=== PATIENT | female | born 1985 | race Caucasian/White ===

== ENCOUNTER 2017-02-02 05:07 | Emergency (ER) | payer OTHER ==
--- NOTE | 2017-02-02 06:05 | ED ORDER SUMMARY ---
..... Patient: VIC GALLEGOS OrderSheet [facility] VisitID: [id number] [place] [address] 31y, F Registration Date/Time: 02/02/2017 ORDER SHEET Weight: 83.9 kg (stated) Allergies: No Known Drug Allergy GENERAL ORDERS: Laboratory Geneticist (Continuous) (CP) (05:29 02/02/2017 JQuivey R.N. per protocol) (5:30 JQuivey R.N.) Pulse oximeter (05:30 02/02/2017 JQuivey R.N. per protocol) (5:30 JQuivey R.N.) EKG - ER Stat (05:02/02/2017 JQuivey R.N. per protocol) (5:30 JQuivey R.N.) CBC w Diff Urgent (05:38 02/02/2017 Kirk LIND) (Ack 5:43 Marilou) (5:59 JDeElena R.N.) CMP Urgent (05:38 02/02/2017 Kirk LIND) (Ack 5:43 Israelekimarené) (5:59 JDeElena R.N.) Lipase Urgent (05:38 02/02/2017 Kirk LIND) (Ack 5:43 Israelekimana) (5:59 JDeElena R.N.) MEDICATION ORDERS: GI Cocktail WHITE PO 30 mL with Lidocaine Viscous Mouth/Throat 15 mL, Maalox Plus Oral 15 mL (NOW) (05:37 02/02/2017 Kirk LIND) (Ack 5:48 JDeElena R.N.) (5:58 JDeElena R.N.) Zofran ODT PO 4 mg (NOW) (05:38 02/02/2017 Kirk LIND) (Ack 5:48 JDeElena R.N.) (5:59 JDeElena R.N.) IV FLUIDS: IV Saline Lock (05:30 02/02/2017 JQuivey R.N. per protocol) (5:30 JQuivey R.N.) ORDER SHEET NOTES: [Electronically signed by Misbah Almonte R.N. (06:13 02/02/2017)] [Electronically signed by Tracy Vázquez MD (13:32 02/10/2017)] [Electronically locked/signed by Misbah Almonte R.N. (06:13 02/02/2017)]
--- NOTE | 2017-02-02 06:05 | ED NURSING NOTES ---
Clinical Report - Nurses [facility] [address] [place] [address] 02/02/2017 5:08 Patient: YARELIS GALLEGOS TRIAGE Triage time 05:13. Acuity: LEVEL 3. Chief Complaint: CHEST PAIN. 05:22. Alert. SEPSIS SCREEN: Sepsis Screen. Negative (no infection suspected/documented). --05:24 Dipak Pearl R.N. 05:13 02/02/17. BP: 166/97. HR: 62. RR: 16. O2 saturation: 100% on room air. Temp: 98.2 F (oral). Pain level now: 310. --05:24 Dipak Pearl R.N. Weight: 83.9 kg stated. Height/Length: 65 inches Per Patient. BMI: 30.8. --05:19 Dipak Paerl R.N. Medications Metoprolol Tartrate Oral 25 mg, daily. --05:14 Dipak Pearl R.N. Gabapentin Oral 300 mg, daily. --05:15 Dipak Pearl R.N. The following entry was struck and corrected by Dipak Pearl R.N., 05:17 (02/02/17) Reason for correction - other(correction). <<STRICKEN ENTRY-- Metoprolol Tartrate Oral. --05:14 Dipak Pearl R.N. --END STRIKE>>. Medication/allergy information source: the patient. --05:24 Dipak Pearl R.N. Allergies No Known Drug Allergy. --05:17 Dipak Pearl R.N. History Arrived by private vehicle. Historian: patient. Accompanied by friend. Primary physician (Brenden). Onset. (about 0000). ( Patient reports epigastric/ chest pain that started about midnight, states that it comes and goes, seems to get better then it comes back reports having had a tooth extraction yesterday). 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 PAST MEDICAL HX: Immunizations: up-to-date. Last normal menstrual period- 2 months ago. Denies current . SOCIAL HX: Current every day heavy tobacco smoker- less than 1 pack per day. No alcohol use or drug use. No infectious disease exposure. ABUSE ASSESSMENT: No report of abuse. FALL RISK ASSESSMENT: Fall risk assessment completed. No fall risk identified. NUTRITIONAL RISK ASSESSMENT: The nutritional risk assessment revealed no deficiencies. FUNCTIONAL ASSESSMENT: Functional assessment: no impairments noted. LEARNING NEEDS ASSESSMENT: The learning needs assessment revealed no barriers. SKIN INTEGRITY ASSESSMENT: Skin integrity risk assessment completed. No skin integrity risk identified. --05:24 Dipak Pearl R.N. PROBLEMS: Ovarian Cyst. Hypertension. --05:16 Dipak Pearl R.N. ADDITIONAL SURGERIES: no known surgeries. Interventions ID band on patient. To treatment room. --05:24 Dipak Pearl R.N. PHYSICAL ASSESSMENT 05:15. Ambulatory to room. Patient gowned. GENERAL / NEURO / PSYCH: Alert. Oriented X 4. HEENT: Mucous membranes are pink. RESPIRATORY: Respirations not labored. SKIN: Skin is warm and dry. Normal skin turgor. --05:19 Dipak Pearl R.N. NURSING PROGRESS NOTES 05:12. Head of bed elevated. Two patient identifiers checked. Call light placed in reach. Bed placed in lowest position. Brakes of bed on. Patient ready for evaluation- chart flagged. --05:18 Dipak Pearl R.N. 05:14 02/02/2017 Site #1 started via IV in the right antecubital space with an 20g angiocath, with aseptic technique and good blood return; one attempt. Blood drawn: rainbow set. Labeled in the presence of the patient and sent to the lab. Saline lock flushed with 10 mL saline. --05:18 Dipak Pearl R.N. 05:15. bus driver/monitor, pulse oximeter and NIBP monitor placed on patient; monitor alarms on. --05:24 Dipak Pearl R.N. 05:20. EKG time: (0520). EKG was performed by a tech and shown to the ED physician. --05:25 Dipak Pearl R.N. 05:58 02/02/2017 GI COCKTAIL WHITE (Simethicone) PO Oral Suspension 30 mL given. Allergies verified and confirmed 5 rights. --05:58 Misbah Almonte R.N. 05:59 02/02/2017 Zofran ODT (Ondansetron) PO Oral Disintegrating Tablets 4 mg given. Allergies verified and confirmed 5 rights. --05:59 Misbah Almonte R.N. 06:13 02/02/2017 GI COCKTAIL WHITE PO Response: no adverse reaction pain is gone now. Symptoms are the same. The patient feels better. --06:13 Misbah Almonte R.N. 06:13 02/02/2017 Zofran ODT PO Response: symptoms have improved the patient feels better. --06:13 Misbah Almonte R.N. DISPOSITION / DISCHARGE Departure time: :13. Condition at departure: stable. The goals identified in the patient's plan of care were met. No learning barriers present. Discharge instructions provided and reviewed with the patient. Reviewed medication(s) side effects, precautions, dosing and course information. Prescription(s) given to the patient. Patient verbalized understanding. Written instructions provided in Swazi. ( Yarelis verbalizes understanding of all d/c instructions including need to f/u with PCP. He has no questions and voices no concerns at this time.). The patient was discharged by the physician. She was discharged home and accompanied by spouse. She left the Emergency Department ambulatory and via private vehicle. Spouse driving. DEQUAN COMA SCORE: Dequan Coma Scale: 15- eyes open spontaneously (4); best verbal response- oriented x 4 (5); best motor response- obeys commands (6). --06:13 Misbah Almonte R.N. 06:11 02/02/17. BP: 140/90 (regular adult cuff) taken on the left arm, via an automated monitor, while lying. HR: 62 (regular and normal rate). RR: 12 (regular, unlabored and normal). O2 saturation: 97% on room air. Temp: 98.7 F (oral). Pain level now: 0/10. --06:13 Misbah Almonte R.N. 06:13 02/02/2017 Site #1 removed upon discharge. Catheter intact. Bandaid applied. --06:13 Misbah Almonte R.N. Locked/Released at 02/02/2017 6:13 by Misbah Almonte R.N.
--- NOTE | 2017-02-02 06:05 | ED ORDER SUMMARY ---
..... Patient: VIC GALLEGOS OrderSheet [facility] VisitID: [id number] [place] [address] 31y, F Registration Date/Time: 02/02/2017 ORDER SHEET Weight: 83.9 kg (stated) Allergies: No Known Drug Allergy GENERAL ORDERS: Java Systems Analyst (Continuous) (CP) (05:29 02/02/2017 JQuivey R.N. per protocol) (5:30 JQuivey R.N.) Pulse oximeter (05:30 02/02/2017 JQuivey R.N. per protocol) (5:30 JQuivey R.N.) EKG - ER Stat (05:02/02/2017 JQuivey R.N. per protocol) (5:30 JQuivey R.N.) CBC w Diff Urgent (05:38 02/02/2017 Kirk LIND) (Ack 5:43 Marilou) (5:59 JDeElena R.N.) CMP Urgent (05:38 02/02/2017 Kirk LIND) (Ack 5:43 Israelekimarené) (5:59 JDeElena R.N.) Lipase Urgent (05:38 02/02/2017 Kirk LIND) (Ack 5:43 Israelekimana) (5:59 JDeElena R.N.) MEDICATION ORDERS: GI Cocktail WHITE PO 30 mL with Lidocaine Viscous Mouth/Throat 15 mL, Maalox Plus Oral 15 mL (NOW) (05:37 02/02/2017 Kirk LIND) (Ack 5:48 JDeElena R.N.) (5:58 JDeElena R.N.) Zofran ODT PO 4 mg (NOW) (05:38 02/02/2017 Kirk LIND) (Ack 5:48 JDeElena R.N.) (5:59 JDeElena R.N.) IV FLUIDS: IV Saline Lock (05:30 02/02/2017 JQuivey R.N. per protocol) (5:30 JQuivey R.N.) ORDER SHEET NOTES: [Electronically signed by Misbah Almonte R.N. (06:13 02/02/2017)] [Electronically signed by Tracy Vázquez MD (13:32 02/10/2017)] [Electronically locked/signed by Misbah Almonte R.N. (06:13 02/02/2017)]
--- NOTE | 2017-02-02 06:05 | ED NURSING NOTES ---
Clinical Report - Nurses [facility] [address] [place] [address] 02/02/2017 5:08 Patient: YARELIS GALLEGOS TRIAGE Triage time 05:13. Acuity: LEVEL 3. Chief Complaint: CHEST PAIN. 05:22. Alert. SEPSIS SCREEN: Sepsis Screen. Negative (no infection suspected/documented). --05:24 Dipak Pearl R.N. 05:13 02/02/17. BP: 166/97. HR: 62. RR: 16. O2 saturation: 100% on room air. Temp: 98.2 F (oral). Pain level now: 310. --05:24 Dipak Pearl R.N. Weight: 83.9 kg stated. Height/Length: 65 inches Per Patient. BMI: 30.8. --05:19 Dipak Pearl R.N. Medications Metoprolol Tartrate Oral 25 mg, daily. --05:14 Dipak Pearl R.N. Gabapentin Oral 300 mg, daily. --05:15 Dipak Pearl R.N. The following entry was struck and corrected by Dipak Pearl R.N., 05:17 (02/02/17) Reason for correction - other(correction). <<STRICKEN ENTRY-- Metoprolol Tartrate Oral. --05:14 Dipak Pearl R.N. --END STRIKE>>. Medication/allergy information source: the patient. --05:24 Dipak Pearl R.N. Allergies No Known Drug Allergy. --05:17 Dipak Pearl R.N. History Arrived by private vehicle. Historian: patient. Accompanied by friend. Primary physician (Brenden). Onset. (about 0000). ( Patient reports epigastric/ chest pain that started about midnight, states that it comes and goes, seems to get better then it comes back reports having had a tooth extraction yesterday). 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 PAST MEDICAL HX: Immunizations: up-to-date. Last normal menstrual period- 2 months ago. Denies current . SOCIAL HX: Current every day heavy tobacco smoker- less than 1 pack per day. No alcohol use or drug use. No infectious disease exposure. ABUSE ASSESSMENT: No report of abuse. FALL RISK ASSESSMENT: Fall risk assessment completed. No fall risk identified. NUTRITIONAL RISK ASSESSMENT: The nutritional risk assessment revealed no deficiencies. FUNCTIONAL ASSESSMENT: Functional assessment: no impairments noted. LEARNING NEEDS ASSESSMENT: The learning needs assessment revealed no barriers. SKIN INTEGRITY ASSESSMENT: Skin integrity risk assessment completed. No skin integrity risk identified. --05:24 Dipak Pearl R.N. PROBLEMS: Ovarian Cyst. Hypertension. --05:16 Dipak Pearl R.N. ADDITIONAL SURGERIES: no known surgeries. Interventions ID band on patient. To treatment room. --05:24 Dipak Pearl R.N. PHYSICAL ASSESSMENT 05:15. Ambulatory to room. Patient gowned. GENERAL / NEURO / PSYCH: Alert. Oriented X 4. HEENT: Mucous membranes are pink. RESPIRATORY: Respirations not labored. SKIN: Skin is warm and dry. Normal skin turgor. --05:19 Dipak Pearl R.N. NURSING PROGRESS NOTES 05:12. Head of bed elevated. Two patient identifiers checked. Call light placed in reach. Bed placed in lowest position. Brakes of bed on. Patient ready for evaluation- chart flagged. --05:18 Dipak Pearl R.N. 05:14 02/02/2017 Site #1 started via IV in the right antecubital space with an 20g angiocath, with aseptic technique and good blood return; one attempt. Blood drawn: rainbow set. Labeled in the presence of the patient and sent to the lab. Saline lock flushed with 10 mL saline. --05:18 Dipak Pearl R.N. 05:15. patient care provider, pulse oximeter and NIBP monitor placed on patient; monitor alarms on. --05:24 Dipak Pearl R.N. 05:20. EKG time: (0520). EKG was performed by a tech and shown to the ED physician. --05:25 Dipak Pearl R.N. 05:58 02/02/2017 GI COCKTAIL WHITE (Simethicone) PO Oral Suspension 30 mL given. Allergies verified and confirmed 5 rights. --05:58 Misbah Almonte R.N. 05:59 02/02/2017 Zofran ODT (Ondansetron) PO Oral Disintegrating Tablets 4 mg given. Allergies verified and confirmed 5 rights. --05:59 Misbah Almonte R.N. 06:13 02/02/2017 GI COCKTAIL WHITE PO Response: no adverse reaction pain is gone now. Symptoms are the same. The patient feels better. --06:13 Misbah Almonte R.N. 06:13 02/02/2017 Zofran ODT PO Response: symptoms have improved the patient feels better. --06:13 Misbah Almonte R.N. DISPOSITION / DISCHARGE Departure time: :13. Condition at departure: stable. The goals identified in the patient's plan of care were met. No learning barriers present. Discharge instructions provided and reviewed with the patient. Reviewed medication(s) side effects, precautions, dosing and course information. Prescription(s) given to the patient. Patient verbalized understanding. Written instructions provided in Guamanian. ( Yarelis verbalizes understanding of all d/c instructions including need to f/u with PCP. He has no questions and voices no concerns at this time.). The patient was discharged by the physician. She was discharged home and accompanied by spouse. She left the Emergency Department ambulatory and via private vehicle. Spouse driving. DEQUAN COMA SCORE: Dequan Coma Scale: 15- eyes open spontaneously (4); best verbal response- oriented x 4 (5); best motor response- obeys commands (6). --06:13 Misbah Almonte R.N. 06:11 02/02/17. BP: 140/90 (regular adult cuff) taken on the left arm, via an automated monitor, while lying. HR: 62 (regular and normal rate). RR: 12 (regular, unlabored and normal). O2 saturation: 97% on room air. Temp: 98.7 F (oral). Pain level now: 0/10. --06:13 Misbah Almonte R.N. 06:13 02/02/2017 Site #1 removed upon discharge. Catheter intact. Bandaid applied. --06:13 Misbah Almonte R.N. Locked/Released at 02/02/2017 6:13 by Misbah Almonte R.N.
--- NOTE | 2017-02-02 06:05 | ED CLINICAL REPORT ---
Clinical Report - Physicians/Mid Levels [facility] [address] [place] [address] 02/02/2017 5:08 Patient: VIC GALLEGOS Time Seen: 05:17. Arrived- By private vehicle. Historian- patient. HISTORY OF PRESENT ILLNESS Chief Complaint: CHEST PAIN. It is described as pressure, burning and "pain" and it is described as located in the central chest area. This started about 12 hours ago, but got worse at about 1230. and is still present. Onset during rest. At its maximum, severity described as moderate. When seen in the E.D., severity described as moderate. Modifying factors. Not worsened by anything. Not relieved by anything. The patient has had nausea. No vomiting, difficulty breathing or diaphoresis. (PT states the sx randomly sheba and flare up again. She has a h/o acid reflux, but states this is not the same.). Similar symptoms previously: Milder. Recent medical care: Not recently seen/assessed. REVIEW OF SYSTEMS No fever, chills, cough, pedal edema or calf pain. No fainting episodes, headache, sore throat, blurred vision or abdominal pain. No black stools, difficulty with urination, skin rash, enlarged lymph nodes or joint pain. No bloody stools. All systems otherwise negative, except as recorded above. SOCIAL HISTORY Never smoker. No alcohol use or drug use. ADDITIONAL NOTES The nursing notes have been reviewed. PHYSICAL EXAM Vital Signs: 02/02/2017 05:13 BP: 166/97. HR: 62. RR: 16. O2 saturation: 100%. Temp: 98.2 F. Pain level now: 10. Have been reviewed. Appearance: Alert. Oriented X3. No acute distress. (Pt appears mildly uncomfortable.). Eyes: Pupils equal, round and reactive to light. Eyes normal inspection. ENT: Nose normal. Neck: Normal inspection. CVS: Normal heart rate and rhythm. Heart sounds normal. Pulses normal. Respiratory: No respiratory distress. Breath sounds normal. Abdomen: Soft and nontender. Back: Normal external inspection. No CVA tenderness. Skin: Skin warm and dry. Normal skin color. No rash. Normal skin turgor. Extremities: Extremities exhibit normal ROM. No lower extremity edema. Neuro: (Grossly intact.). LABS, X-RAYS, AND EKG EKG: EKG time: (0520). No acute process. No acute ischemia. Normal EKG. Normal sinus rhythm. Rate: 60. Normal P waves. Normal LATONIA. Normal QRS complex. Normal axis. Normal ST and T waves, QT and QTc. Prior EKG unavailable. The study has been interpreted contemporaneously by me. The study has been independently viewed by me. The EKG appears to be a good tracing. I agree with and confirm the computer reading of the EKG. Laboratory Tests: CBC w Diff: (JHOANA: 02/02/2017 05:16) ( Mscvd 02/02/2017 05:47) Final results Test Result Flag Units (Reference) WHITE BLOOD COUNT 9.6 K/uL (4.5-11.5) RED BLOOD COUNT 4.82 M/uL (4.00-5.20) HEMOGLOBIN 13.1 gm/dL (12.0-16.0) HEMATOCRIT 39.4 % (36.0-46.0) MEAN CELL VOLUME 82 fL (80-100) MEAN CORPUSCULAR HGB 27 pg (26-34) MEAN CORPUSCULAR HGB CONC 33 g/dL (31-37) RED CELL DISTRIBUTION WIDTH 13.7 % (11.6-14.8) PLATELET COUNT 300 K/uL (150-400) NEUTROPHIL % 56.5 % (50-75) LYMPH % 34.9 % (25-40) MONO % 6.9 % (3-14) EOSINOPHIL % 1.4 % (0-4) BASOPHIL % 0.3 % (0-2) CMP: (JHOANA: 02/02/2017 05:16) ( MsgRcvd 02/02/2017 05:56) Final results Test Result Flag Units (Reference) GLUCOSE 101 mg/dL (70-110) BUN 19 H mg/dL (7-18) CREATININE 0.7 mg/dL (0.6-1.3) Estimated GFR >60 mL/min Estimated GFR- >60 mL/min Note: Persistent reduction over 3 months in eGFR<60 mL/min/1.73 m2 defines CKD. Patients with eGFR values>=60 mL/min/1.73 m2 may also have CKD if evidence ofpersistent proteinuria. Additional information may be foundat www.kidney.org. SODIUM 141 mmol/L (136-145) POTASSIUM 4.1 mmol/L (3.5-5.1) CHLORIDE 102 mmol/L (98-107) CARBON DIOXIDE 30 mmol/L (21-32) CALCIUM 9.2 mg/dL (8.5-10.1) TOTAL PROTEIN 7.5 g/dL (6.4-8.2) ALBUMIN 3.8 g/dL (3.3-5.0) BILIRUBIN, TOTAL 0.3 mg/dL (0.0-1.0) ALKALINE PHOSPHATASE 70 U/L (46-116) AST (SGOT) 18 U/L (15-37) ALT (SGPT) 33 U/L (12-78) LIPASE 166 U/L (73-393) . Pulse Oximetry: 02/02/2017 05:13 O2 saturation: 100%. (FIO2 - room air). Interpretation: normal. PROGRESS AND PROCEDURES Course of Care: Pt was given a GI cocktail and Zofran for symptomatic relief. She was worked up with labs, which were normal. No emergent condition was identified. Patient counseled in person regarding the patient's stable condition, test results, diagnosis and need for follow-up. Concerns were addressed. Old medical records reviewed. Disposition: Discharged. Condition: stable and improved. CLINICAL IMPRESSION Acute esophagitis associated with gastro-esophageal reflux disease (GERD). INSTRUCTIONS Warnings: GENERAL WARNINGS: Return or contact your physician immediately if your condition worsens or changes unexpectedly, if not improving as expected, or if other problems arise. Your Current Medications: CONTINUE TAKING THE FOLLOWING MEDICATIONS: Gabapentin Oral : 300 mg daily. Metoprolol Tartrate Oral : 25 mg daily. Prescription Medications: Zofran (orally disintegrating tablets) 4 mg: take 1-2 orally every 6 hours as needed for nausea. Dispense five (5). No refill. Substitution is permissible. Follow-up: Follow up with your doctor in seven days as needed. Reason for referral: Follow up ER visit. Understanding of the discharge instructions verbalized by patient. (Electronically signed by Tracy Vázquez MD 02/10/2017 13:32)
--- NOTE | 2017-02-10 13:32 | ED DISCHARGE INSTRUCTIONS ---
Patient: VIC GALLEGOS General Instructions [facility] VisitID: [id number] [place] [address] 31y, F Registration Date/Time: 02/02/2017 Acute esophagitis associated with gastro-esophageal reflux disease (GERD). INSTRUCTIONS Warnings: GENERAL WARNINGS: Return or contact your physician immediately if your condition worsens or changes unexpectedly, if not improving as expected, or if other problems arise. Your Current Medications: CONTINUE TAKING THE FOLLOWING MEDICATIONS: Gabapentin Oral : 300 mg daily. Metoprolol Tartrate Oral : 25 mg daily. Prescription Medications: Zofran (orally disintegrating tablets) 4 mg: take 1-2 orally every 6 hours as needed for nausea. Dispense five (5). No refill. Substitution is permissible. Follow-up: Follow up with your doctor in seven days as needed. Reason for referral: Follow up ER visit. Understanding of the discharge instructions verbalized by patient. (Electronically signed by Tracy Vázquez MD 02/10/2017 13:32)
--- NOTE | 2017-02-10 13:32 | ED DISCHARGE INSTRUCTIONS ---
Patient: VIC GALLEGOS General Instructions [facility] VisitID: [id number] [place] [address] 31y, [place] Registration Date/Time: 02/02/2017 Acute esophagitis associated with gastro-esophageal reflux disease (GERD). INSTRUCTIONS Warnings: GENERAL WARNINGS: Return or contact your physician immediately if your condition worsens or changes unexpectedly, if not improving as expected, or if other problems arise. Your Current Medications: CONTINUE TAKING THE FOLLOWING MEDICATIONS: Gabapentin Oral : 300 mg daily. Metoprolol Tartrate Oral : 25 mg daily. Prescription Medications: Zofran (orally disintegrating tablets) 4 mg: take 1-2 orally every 6 hours as needed for nausea. Dispense five (5). No refill. Substitution is permissible. Follow-up: Follow up with your doctor in seven days as needed. Reason for referral: Follow up ER visit. Understanding of the discharge instructions verbalized by patient. (Electronically signed by Tracy Vázquez MD 02/10/2017 13:32)
--- NOTE | 2017-02-10 13:32 | ED MED RECONCILIATION SUMMARY ---
Patient: VIC GALLEGOS Medication Reconciliation Report [facility] VisitID: [id number] [place] [address] 31y, F Registration Date/Time: 02/02/2017 Weight: 83.9 kg Height/Length: 65 in. BMI: 30.8 ALLERGIES: No Known Drug Allergy The patient's Home Medications are listed below: CONTINUE TAKING THE FOLLOWING MEDICATIONS: Gabapentin Oral 300 mg, daily Metoprolol Tartrate Oral 25 mg, daily The source(s) of the original Home Medication information: patient The following Medications were given to the patient in the Emergency Department: GI COCKTAIL WHITE [PO] PO 30 mL, administered: 02/02/2017 5:58:00 AM Zofran ODT [PO] PO 4 mg, administered: 02/02/2017 5:59:00 AM The following Medications were prescribed to the patient: Zofran (orally disintegrating tablets) 4 mg: take 1-2 orally every 6 hours as needed for nausea. Dispense five (5). No refill. Substitution is permissible. -- Tracy Vázquez MD
--- NOTE | 2017-02-10 13:32 | ED MED RECONCILIATION SUMMARY ---
Patient: VIC GALLEGOS Medication Reconciliation Report [facility] VisitID: [id number] [place] [address] 31y, F Registration Date/Time: 02/02/2017 Weight: 83.9 kg Height/Length: 65 in. BMI: 30.8 ALLERGIES: No Known Drug Allergy The patient's Home Medications are listed below: CONTINUE TAKING THE FOLLOWING MEDICATIONS: Gabapentin Oral 300 mg, daily Metoprolol Tartrate Oral 25 mg, daily The source(s) of the original Home Medication information: patient The following Medications were given to the patient in the Emergency Department: GI COCKTAIL WHITE [PO] PO 30 mL, administered: 02/02/2017 5:58:00 AM Zofran ODT [PO] PO 4 mg, administered: 02/02/2017 5:59:00 AM The following Medications were prescribed to the patient: Zofran (orally disintegrating tablets) 4 mg: take 1-2 orally every 6 hours as needed for nausea. Dispense five (5). No refill. Substitution is permissible. -- Tracy Vázquez MD
--- NOTE | 2017-02-10 13:32 | ED MAR SUMMARY ---
..... Medication Administration Record [facility] [address] [place] [address] Patient: VIC GALLEGOS Visit ID: [id number] 31y, F Weight: 83.9 kg Height/Length: 65 in BMI: 30.8 ALLERGIES: No Known Drug Allergy Given 05:58 02/02/2017 Misbah Almonte, R.N. Medication Administered: GI COCKTAIL WHITE [PO] (SIMETHICONE), Dose: 30 mL Oral Suspension PO. Medication Ordered: GI Cocktail WHITE PO 30 mL with Lidocaine Viscous Mouth/Throat 15 mL, Maalox Plus Oral 15 mL (NOW). Given 05:59 02/02/2017 Misbah Almonte, R.N. Medication Administered: ZOFRAN ODT [PO] (ONDANSETRON), Dose: 4 mg Oral Disintegrating Tablets PO. Medication Ordered: Zofran ODT PO 4 mg (NOW).
--- NOTE | 2017-02-10 13:32 | ED MAR SUMMARY ---
..... Medication Administration Record [facility] [address] [place] [address] Patient: VIC GALLEGOS Visit ID: [id number] 31y, F Weight: 83.9 kg Height/Length: 65 in BMI: 30.8 ALLERGIES: No Known Drug Allergy Given 05:58 02/02/2017 Misbah Almonte, R.N. Medication Administered: GI COCKTAIL WHITE [PO] (SIMETHICONE), Dose: 30 mL Oral Suspension PO. Medication Ordered: GI Cocktail WHITE PO 30 mL with Lidocaine Viscous Mouth/Throat 15 mL, Maalox Plus Oral 15 mL (NOW). Given 05:59 02/02/2017 Misbah Almonte, R.N. Medication Administered: ZOFRAN ODT [PO] (ONDANSETRON), Dose: 4 mg Oral Disintegrating Tablets PO. Medication Ordered: Zofran ODT PO 4 mg (NOW).
== END 2017-02-02 06:13 | disposition home or self-care (01) ==
LOC: ED SRH 05:07
DX: K21.0 Gastro-esophageal reflux disease with esophagitis (principal)
CPT/HCPCS: 90100; 92235; 95059